=== PATIENT | female | born 1950 | race Caucasian/White ===

== ENCOUNTER 2023-09-19 05:23 | Day surgery (SDC) | payer MEDICARE ==
[2023-09-11 11:07] LABS: BASOPHILS # (AUTO) 0.1 X10'3 (0-0.2); EOSINOPHILS # (AUTO) 0.1 X10'3 (0-0.9); EOSINOPHILS % (AUTO) 2.1 % (0-6); LYMPHOCYTES # (AUTO) 2.6 X10'3 (1.1-4.8); LYMPHOCYTES % (AUTO) 42.3 % (21-51); MEAN CORPUSCULAR HEMOGLOBIN 33.4 PG (27.0-31.0); MEAN CORPUSCULAR HGB CONC 33.6 g/dL (33.0-36.5); MEAN CORPUSCULAR VOLUME 99.5 FL (78-98); MEAN PLATELET VOLUME 7.8 FL (7.4-10.4); MONOCYTES # (AUTO) 0.7 X10'3 (0-0.9); MONOCYTES % (AUTO) 11.2 % (2-12); NEUTROPHILS # (AUTO) 2.7 X10'3 (1.8-7.7); NEUTROPHILS % (AUTO) 43.4 % (42-75); PRE OP HEMATOCRIT 41.1 % (35.0-45.0); PRE OP HEMOGLOBIN 13.8 g/dL (12.0-16.0); PRE OP PLATELET COUNT 277 X10'3 (140-440); PRE OP WHITE BLOOD COUNT 6.2 10'3 (4.8-10.8); RED BLOOD COUNT 4.13 X10'6 (4.20-5.60); RED CELL DISTRIBUTION WIDTH 12.8 % (11.5-14.5)
[2023-09-11 12:29] LABS: ALBUMIN 3.5 G/DL (3.4-5.0); ALBUMIN/GLOBULIN RATIO 0.7 (1.1-1.5); ALKALINE PHOSPHATASE 94 IU/L (46-116); BLOOD UREA NITROGEN 18 MG/DL (7-18); BUN/CREATININE RATIO 20.9 (10.0-20.0); CALCIUM 9.3 MG/DL (8.5-10.1); CHLORIDE 101 MMOL/L (99-107); CREATININE 0.86 MG/DL (0.40-0.90); PRE OP ALT 29 U/L (30-65); PRE OP ANION GAP 11 (8-16); PRE OP AST 14 U/L (10-37); PRE OP BILIRUB, TOTAL 0.5 MG/DL (0.0-1.0); PRE OP GLUCOSE 103 MG/DL (70-104); PRE OP POTASSIUM 4.3 MMOL/L (3.4-5.1); PRE OP SODIUM 136 MMOL/L (135-145); TOTAL CARBON DIOXIDE 24.3 MMOL/L (24-32); TOTAL PROTEIN 8.4 G/DL (6.4-8.2); eGFR 65 ML/MIN
[~2023-09-19] VITALS: Ht 157.5 cm; Wt 72.6 kg
[2023-09-19] VITALS (11 sets, daily range): BP systolic 137–151; BP diastolic 66–80; PULSE 62–99; RESP 12–18; TEMP 97.8; O2SAT 92–100
[~2023-09-19 05:23] MED LIST: LATA2.5D14 EACHEYE; LEVO50TA8 PO
[2023-09-19] MEDS: famotidine 20mg tablet PO ONE (05:30)
[2023-09-19] MEDS: cefazolin 2gm/D5W 100mL 100 ML IV ONE (05:48)
[2023-09-19] MEDS: ringers solution, lacted 1,000 ML IV SCH (06:28)
[2023-09-19] MEDS ORDERED: BUPIVACAINE liposomal/PF 13.3 MG/ML vial IM ONE (07:03)
[2023-09-19] MEDS ORDERED: fentaNYL/PF 50MCG/1 ML 2ML syringe ONE (07:31)
[2023-09-19] MEDS ORDERED: midazolam 1 mg/ML 2ml injection ONE (07:31)
[2023-09-19] MEDS ORDERED: dexamethasone sod phosphate 4mg/ml inj. ONE (07:31)
[2023-09-19] MEDS ORDERED: acetaminophen 1,000mg/100ml IV 100 ML IV ONE (07:31)
[2023-09-19] MEDS ORDERED: propofol inj 20 ML IV ONE (07:31)
[2023-09-19] MEDS ORDERED: LIDOcaine 2% (20mg/ml) 5ml vial ONE (07:32)
[2023-09-19] MEDS ORDERED: ondansetron/PF 4mg/2ml inj ONE (07:32)
[2023-09-19] MEDS ORDERED: labetalol 20mg/4ml (5mg/ml) syringe IV PRN (07:35)
[2023-09-19] MEDS ORDERED: ringers solution, lacted 1,000 ML IV SCH (07:35)
[2023-09-19] MEDS ORDERED: morphine 4 MG/ML inj SYRINge IV PRN (07:35)
[2023-09-19] MEDS ORDERED: hydrALAZINE 20mg/ml inj. IV PRN (07:35)
[2023-09-19] MEDS ORDERED: ondansetron/PF 4mg/2ml inj IV PRN (07:35)
[2023-09-19] MEDS ORDERED: morphine 2 MG/ML inj. syringe IV PRN (07:35)
[2023-09-19] MEDS ORDERED: fentaNYL/PF 50MCG/1 ML 2ML syringe IV PRN ×2 (07:35)
[2023-09-19] MEDS ORDERED: sevoflurane 250ml liquid IH ONE (07:39)
[2023-09-19] MEDS ORDERED: PHENYLephrine 10mg/ml 5ml injection IV ONE (07:39)
[2023-09-19] MEDS: BUPIVAcaine 2.5mg/ml inj 50ml vial (contains preservative) ONE (08:22)
[2023-09-19] MEDS: LIDOcaine 1% (10mg/ml)w/preservative inj. 20ml MDV ONE (08:23)
[2023-09-19] MEDS: methylene blue (5mg/ml) 50mg/10ml ampul IV ONE (08:24)
[2023-09-19] MEDS ORDERED: ePHEDrine 50MG/ML INJ. ONE (08:30)
== END 2023-09-19 10:46 | disposition home or self-care (01) ==
LOC: PAS 05:23
PROVIDERS: ATTEND Surgery
DX: C50.412 Malignant neoplasm of upper-outer quadrant of left female breast (principal); E03.9 Hypothyroidism, unspecified; H40.9 Unspecified glaucoma; Z85.038 Personal history of other malignant neoplasm of large intestine; Z79.890 Hormone replacement therapy; Z79.899 Other long term (current) drug therapy; Z90.49 Acquired absence of other specified parts of digestive tract
CPT/HCPCS: 19301; 36415; 38525; 76098; 80053; 82948; 85025; 93005; C9290; J0131; J0690; J1100; J2250; J2370; J2405; J2704; J3010; J3490; J7030; J7120; Q9968; Z7506; Z7508; Z7512; 76998; A4215; A4618; A6258; A7000